=== PATIENT | female | born 1960 | race Caucasian/White ===

== ENCOUNTER 2023-12-13 20:27 | Emergency (ER) | payer BC ==
[~2023-12-13] VITALS: Ht 172.7 cm; Wt 63.5 kg
[2023-12-13] MEDS ORDERED: ADENOSINE 6 MG/2 ML SYR IV ONE ×2 (20:41→20:43)
[2023-12-13] MEDS: ADENOSINE 6 MG/2 ML SYR IV ONE ×2 (20:50→21:36)
[2023-12-13] MEDS ORDERED: ONDANSETRON 4 MG/2 ML VIAL ONE (20:54)
[2023-12-13 20:56] LABS: BASOPHILS % (AUTO) 0.2 % (0.0-2.0); EOSINOPHILS # (AUTO) 0.2 K/uL (0.0-0.7); EOSINOPHILS % (AUTO) 1.9 % (0.0-7.0); HEMATOCRIT 41.4 % (31.2-41.9); HEMOGLOBIN 13.8 g/dL (10.9-14.3); LYMPHOCYTES # (AUTO) 2.3 K/uL (0.8-4.8); LYMPHOCYTES % (AUTO) 26.2 % (20.5-51.5); MEAN CORPUSCULAR HEMOGLOBIN 30.4 uug (24.7-32.8); MEAN CORPUSCULAR HGB CONC 33 g/dL (32.3-35.6); MEAN CORPUSCULAR VOLUME 91.1 fL (75.5-95.3); MONOCYTES # (AUTO) 0.9 K/uL (0.1-1.30); MONOCYTES % (AUTO) 10.3 % (0.0-11.0); NEUTROPHILS # (AUTO) 5.5 K/uL (1.8-8.9); NEUTROPHILS % (AUTO) 61.4 % (38.5-71.5); PLATELET COUNT (AUTO) 401 K/uL (179-408); RED BLOOD CELL COUNT(AUTO) 4.54 MIL/uL (3.63-4.92); RED CELL DISTRIBUTION WIDTH 13.1 % (12.3-17.7); WHITE BLOOD COUNT (AUTO) 8.9 K/uL (3.8-11.8)
[2023-12-13] MEDS ORDERED: MAGNESIUM SULFATE/D5W 100 ML ONE ×2 (20:56→22:07)
[2023-12-13] MEDS ORDERED: LORAZEPAM 2 MG/1 ML VIAL ONE (20:56)
[2023-12-13 21:01] LABS: DIFFERENTIAL COMMENT 1
[2023-12-13] MEDS ORDERED: METO25TA6 PO (21:02)
[2023-12-13 21:05] LABS: CALCIUM 9.9 mg/dL (8.5-10.1); CARBON DIOXIDE 22 mmol/L (21-32); CHLORIDE 103 mmol/L (98-107); CREATININE 0.9 mg/dL (0.6-1.3); GLUCOSE 126 mg/dL (74-106); POTASSIUM 3.7 mmol/L (3.5-5.1); SODIUM SERUM 141 mmol/L (136-145); UREA NITROGEN, BLOOD 13 mg/dL (7-18)
[2023-12-13] MEDS: LORAZEPAM 2 MG/1 ML VIAL IV ONE (21:06)
[2023-12-13] MEDS: IV NORMAL SALINE 1000 ML BAG IV ONE (21:06)
[2023-12-13] MEDS: MAGNESIUM SULFATE/D5W 100 ML IV ONE (21:07)
[2023-12-13] MEDS: ONDANSETRON 4 MG/2 ML VIAL IV ONE (21:17)
[2023-12-13 21:18] LABS: ALANINE AMINOTRANSFERASE 30 U/L (14-59); ALKALINE PHOSPHATASE 96 U/L (50-136); ASPARTATE AMINOTRANSFERASE 19 U/L (15-37); BILIRUBIN,DIRECT 0.2 mg/dL (0.0-0.2); BILIRUBIN,TOTAL 0.5 mg/dL (0.2-1.0); NT-PRO BNP 472 pg/mL (0-125); TOTAL PROTEIN, SERUM 6.8 g/dL (6.4-8.2)
[2023-12-13] MEDS ORDERED: GABA-532 PO (22:42)
[2023-12-13] MEDS ORDERED: ALPR0.5T8 PO (22:43)
[2023-12-13] MEDS ORDERED: ONDANSETRON 4 MG/2 ML VIAL IV PRN (23:45)
[2023-12-13] MEDS: ENOXAPARIN SODIUM 40 MG/0.4 ML DISP.SYRIN SQ SCH (23:45)
[2023-12-13] MEDS ORDERED: NITROGLYCERIN 0.4 MG/TAB BOTTLE SL PRN (23:45)
[2023-12-13] MEDS ORDERED: HYDROCODONE/APAP 5-325MG TABLET PO PRN (23:45)
[2023-12-13] MEDS ORDERED: MAGNESIUM HYDROXIDE 30 ML LIQUID UDC PO PRN (23:45)
[2023-12-13] MEDS ORDERED: REMEDY ESSENTIAL ZINC PASTE 113 GM TP PRN (23:45)
[2023-12-13] MEDS ORDERED: TEMAZEPAM 15 MG CAPSULE PO PRN (23:45)
[2023-12-13] MEDS ORDERED: ACETAMINOPHEN 325 MG TABLET PO PRN (23:45)
[2023-12-14] MEDS ORDERED: ACETAMINOPHEN 500 MG TABLET ONE (00:04)
[2023-12-14] MEDS ORDERED: GABAPENTIN 100 MG CAPSULE ONE (00:04)
[2023-12-14] MEDS: GABAPENTIN 100 MG CAPSULE PO ONE (00:06)
[2023-12-14] MEDS: ACETAMINOPHEN 500 MG TABLET PO ONE (00:06)
[2023-12-14] MEDS: ASPIRIN 81 MG TAB.CHEW PO ONE (00:07)
[2023-12-14] MEDS ORDERED: ENOXAPARIN SODIUM 40 MG/0.4 ML DISP.SYRIN SQ ONE (01:31)
[2023-12-14 01:49] VITALS: BP 130/76; TEMP 98.4; O2SAT 99
[2023-12-14] MEDS ORDERED: PANTOPRAZOLE SODIUM 40 MG VIAL IV SCH (09:00)
[2023-12-14] MEDS ORDERED: ASPIRIN 81 MG TAB.CHEW PO SCH (09:00)
== END 2023-12-14 01:51 | disposition left against medical advice (07) ==
LOC: ER 20:33 → TELE3 23:31 → UNDOADMIN 23:31 → UNDODISIN 23:35 → ER 12-14 01:51
DX: I47.10 Supraventricular tachycardia, unspecified (principal); F41.9 Anxiety disorder, unspecified; R79.89 Other specified abnormal findings of blood chemistry; Z79.899 Other long term (current) drug therapy; Z53.29 Procedure and treatment not carried out because of patient's decision for other reasons
CPT/HCPCS: 99291; 96365; 96375; 80076; 80048; 83880; 83735; 85025; 85379; 85730; 84484 ×4; 36415 ×2; 71045; 93005; J0153; J2060; J3475 ×2; J2405; J7040; J1650; A4606; A4663; A9150; G0378